=== PATIENT | female | born 1995 | race Caucasian/White ===

== ENCOUNTER 2021-10-19 19:26 | Emergency (ER) | payer OTHER, BC ==
[~2021-10-19] VITALS: Ht 172.7 cm; Wt 71.1 kg
[2021-10-20] MEDS ORDERED: KETOROLAC 60MG 2ML VIAL IM ONE (01:20)
[2021-10-20] MEDS ORDERED: NAPR-837 PO (01:21)
[2021-10-20 01:27] VITALS: BP 121/84
== END 2021-10-20 01:51 | disposition home or self-care (01) ==
LOC: M ED 19:26
DX: S39.012A Strain of muscle, fascia and tendon of lower back, initial encounter (principal); V49.40XA Driver injured in collision with unspecified motor vehicles in traffic accident, initial encounter; Y92.410 Unspecified street and highway as the place of occurrence of the external cause; Y93.9 Activity, unspecified; Y99.9 Unspecified external cause status
CPT/HCPCS: 72131; 96372; 99283; J1885

== ENCOUNTER → 2021-10-22 | Outpatient (REF) ==
[~2021-10-22] MED LIST: NAPR-837 PO
== END ==
LOC: M EMP 12:24
PROVIDERS: ATTEND Family Medicine
DX: Z20.822 Contact with and (suspected) exposure to COVID-19 (principal)

== ENCOUNTER → 2022-05-16 | Outpatient (REF) | LOC: M EMP 13:29 | PROVIDERS: ATTEND Family Medicine | DX: Z11.52 Encounter for screening for COVID-19 (principal) ==

== ENCOUNTER → 2023-03-14 | Outpatient (REF) | LOC: M EMP 12:15 | PROVIDERS: ATTEND Family Medicine | DX: Z11.52 Encounter for screening for COVID-19 (principal) ==